=== PATIENT | female | born 1955 | race Caucasian/White ===

== ENCOUNTER 2021-10-07 10:41 | Emergency (ER) | payer BC, SELFPAY ==
[~2021-10-07] VITALS: Ht 160 cm; Wt 68.0 kg
[2021-10-07 10:41] VITALS: BP_SYST 145
--- NOTE | 2021-10-07 10:41 | NUR ---
PT IN OUTSIDE TENT, TRIAGED AND AWAITING ER BED AVAILABILITY
--- NOTE | 2021-10-07 10:47 | NUR ---
PT STATES SHE IS HERE FOR A COVID TEST, PT STATES SHE IS UNABLE TO GET AN APPT ANYWHERE AND UNABLE TO GET ANY OVER THE COUNTER TESTS AT THIS TIME. PT STATES 5 DAYS WITH HEADACHE, SORE THROAT, CONGESTION, CHILLS AND OCCASIONALLY A SLIGHT COUGH.
--- NOTE | 2021-10-07 13:38 | NUR ---
ZULEIMA Bowman in tent examining patient.
[2021-10-07] MEDS ORDERED: PRED20TA PO (15:46)
[2021-10-07] MEDS ORDERED: ZIT250 PO (15:46)
[2021-10-07] MEDS ORDERED: ALBU8.5H8 INH (15:46)
--- NOTE | 2021-10-07 16:14 | NUR ---
Patient given written and verbal discharge instructions and verbalizes understanding. ER discussed with patient the results and treatment provided. Patient in stable condition. ID arm band removed. Rx of albuterol, prednisone, and zithromax given. Patient educated on pain management and to follow up with PMD. Pain Scale 0. Opportunity for questions provided and answered. Medication side effect fact sheet provided.
[2021-10-07 16:16] VITALS: BP_SYST 121
== END 2021-10-07 16:16 | disposition home or self-care (01) ==
LOC: SED 10:41
DX: U07.1 COVID-19 (principal); K21.9 Gastro-esophageal reflux disease without esophagitis; E78.9 Disorder of lipoprotein metabolism, unspecified; Z88.8 Allergy status to other drugs, medicaments and biological substances; Z88.1 Allergy status to other antibiotic agents
CPT/HCPCS: 36415; 71045; 86710; 99284